=== PATIENT | male | born 1945 | race Caucasian/White ===

== ENCOUNTER 2018-09-25 09:23 | Day surgery (SDC) | payer OTHER ==
[2018-09-24 12:24] VITALS: BMI 24.7
[~2018-09-25 09:23] MED LIST: ACETAMINOPHEN 325 MG TABLET (FP) PO PRN; BSS (NA/CA/MG/K) BALANCED SALT SOLUTION OPHTH SOLN 15 ML BOTTLE OD ONE; POVIDONE-IODINE 5% OPHTHALMIC PREP 30 ML SOLUTION OD ONE; TETRACAINE 0.5% OPHTH SOLN 2 ML BOTTLE OD ONE
[2018-09-25 09:49] VITALS: TEMP 98.2
[2018-09-25] MEDS ORDERED: OFLOXACIN 0.3% OPHTHALMIC SOLUTION 5 ML BOTTLE ONE (10:01)
[2018-09-25] MEDS ORDERED: TROPICAMIDE 1% OPHTH SOLN 15 ML BOTTLE ONE (10:01)
[2018-09-25] MEDS ORDERED: CYCLOPENTOLATE HCL 1% OPHTH SOLN 2 ML BOTTLE ONE (10:01)
[2018-09-25] MEDS ORDERED: KETOROLAC TROMETHAMINE 0.5% EYE DROP 1 DROP DROPS ONE (10:01)
[2018-09-25] MEDS: KETOROLAC TROMETHAMINE 0.5% EYE DROP 1 DROP DROPS OP SCH ×2 (10:16→10:32)
[2018-09-25] MEDS: CYCLOPENTOLATE HCL 1% OPHTH SOLN 2 ML BOTTLE OP SCH ×2 (10:16→10:32)
[2018-09-25] MEDS: PHENYLEPHRINE 2.5% OPHTH SOLN 15 ML BOTTLE OP SCH ×2 (10:17→10:32)
[2018-09-25] MEDS: OFLOXACIN 0.3% OPHTHALMIC SOLUTION 5 ML BOTTLE OP SCH ×2 (10:17→10:32)
[2018-09-25] MEDS: TROPICAMIDE 1% OPHTH SOLN 15 ML BOTTLE OP SCH ×2 (10:17→10:33)
[2018-09-25] MEDS ORDERED: PROPOFOL 20 ML ONE (10:33)
[2018-09-25] MEDS ORDERED: BUPIVACAINE HCL/PF 0.75% 10 ML VIAL NR ONE (10:59)
[2018-09-25] MEDS ORDERED: LIDOCAINE HCL/PF 2% SDV 5ML VIAL INF ONE (10:59)
[2018-09-25] MEDS ORDERED: GLYCOPYRROLATE 0.2 MG/1 ML VIAL ONE (11:02)
[2018-09-25] MEDS ORDERED: POVIDONE-IODINE 5% OPHTHALMIC PREP 30 ML SOLUTION OD ONE (11:03)
[2018-09-25] MEDS ORDERED: BSS (NA/CA/MG/K) BALANCED SALT SOLUTION OPHTH SOLN 15 ML BOTTLE OD ONE (11:09)
[2018-09-25] MEDS ORDERED: CHONDROITIN SU A/HYALUR SOD 1 KIT IO ONE (11:09)
[2018-09-25] MEDS ORDERED: LIDOCAINE HCL 1% PRESERVATIVE FREE - 30ML VIAL IO ONE (11:09)
[2018-09-25] MEDS ORDERED: EPINEPHrine/PF 1 MG/1 ML (1:1,000) AMPULE SQ ONE (11:19)
[2018-09-25] MEDS ORDERED: TRYPAN BLUE 0.5 ML DISP.SYRIN IO ONE (11:19)
[2018-09-25 12:16] VITALS: BP 137/84; PULSE 62
--- NOTE | 2018-09-26 07:03 | OP ---
DATE OF OPERATION: 09/25/2018 SURGEON: Winston Botello M.D. PREOPERATIVE DIAGNOSIS: Cataract, right eye. POSTOPERATIVE DIAGNOSIS: Cataract, right eye. OPERATION: Phacoemulsification of right cataract with capsular staining with Trypan blue and posterior chamber intraocular lens implantation. The lens used was SN60WF 24.0 diopter power, serial No. [id number]. ANESTHESIA: Peribulbar/Modified Van Lint/MAC. COMPLICATIONS: None. PROCEDURE: The patient was brought to the operating room and correctly identified along with the operative site as well as correct intraocular lens vargas. He was then given a peribulbar block under sedation with 5 mL of a 1:1 mixture of 2% Lidocaine and 0.75% Bupivacaine. Two mL of the same mixture was given as a modified Van Lint block. The eye was then prepped and draped in the usual sterile fashion including 5% Betadine solution in the conjunctival sac and an eyelid drape. An eyelid speculum was then placed into the operative eye. The patients eye was immediately noted to be infraducted, and the eye was attempted to be repositioned using Colibri forceps. However, the patient continued to squeeze and infraduct the eye. Multiple attempts with Uzbek translation was made to try to relax the patient. A paracentesis port was created and intracameral Lidocaine was given. Given the patients lack of centration of the eye, making visualization of the anterior capsule difficult, the decision was made to use trypan blue. An air bubble was injected intracamerally and the capsule was strained with Trypan blue. The Trypan blue was irrigated and aspirated from the eye with 0.5 ccs of preservative free lidocaine 1%. Viscoelastic was injected to inflate the capsular bag. A temporal clear corneal wound was created. A continuous circular capsulorrhexis was performed while holding the eye to fixate it. The nucleus was then hydro-dissected with BSS and removed with phacoemulsification. The remaining cortical material was irrigated and aspirated from the eye. Viscoelastic was injected to inflate the capsular bag. The lens was injected into the capsular bag. The Viscoelastic was then irrigated and aspirated from the eye. All wounds were tested and found to be watertight. The intraocular lens was noted to be well centered and covered by the anterior capsular border. Topical Vancomycin was given as well as a drop of Betadine. The eye was patched and shielded. The patient was discharged from the operating room in a stable condition WINSTON BOTELLO M.D. [id number] MTDTiffany
== END 2018-09-25 12:20 | disposition home or self-care (01) ==
LOC: JASU-SURG 09:23
PROVIDERS: ATTEND Ophthalmology
PROC: 08RJ3JZ Replacement of Right Lens with Synthetic Substitute, Percutaneous Approach (ICD-10-PCS; principal; 2018-09-25 11:00)
DX: H26.9 Unspecified cataract (principal); H57.9 Unspecified disorder of eye and adnexa

== ENCOUNTER 2018-10-09 08:25 | Day surgery (SDC) | payer OTHER ==
[2018-10-08 14:33] VITALS: BMI 24.5
[~2018-10-09 08:25] MED LIST changes: -ACETAMINOPHEN 325 MG TABLET (FP) PO PRN; -BSS (NA/CA/MG/K) BALANCED SALT SOLUTION OPHTH SOLN 15 ML BOTTLE OD ONE; +BSS (NA/CA/MG/K) BALANCED SALT SOLUTION OPHTH SOLN 15 ML BOTTLE OS ONE; +CHONDROITIN SU A/HYALUR SOD 1 KIT IO ONE; +EPINEPHrine/PF 1 MG/1 ML (1:1,000) AMPULE SQ ONE; +LIDOCAINE HCL 1% PRESERVATIVE FREE - 30ML VIAL IO ONE; -POVIDONE-IODINE 5% OPHTHALMIC PREP 30 ML SOLUTION OD ONE; +POVIDONE-IODINE 5% OPHTHALMIC PREP 30 ML SOLUTION OS ONE; -TETRACAINE 0.5% OPHTH SOLN 2 ML BOTTLE OD ONE
[2018-10-09] MEDS ORDERED: OFLOXACIN 0.3% OPHTHALMIC SOLUTION 5 ML BOTTLE ONE (08:41)
[2018-10-09] MEDS ORDERED: CYCLOPENTOLATE HCL 1% OPHTH SOLN 2 ML BOTTLE ONE (08:41)
[2018-10-09] MEDS ORDERED: TROPICAMIDE 0.5% OPHTHALMIC SOLN 15 ML BOTTLE ONE (08:41)
[2018-10-09] MEDS ORDERED: KETOROLAC TROMETHAMINE 0.5% EYE DROP 1 DROP DROPS ONE (08:42)
[2018-10-09] MEDS ORDERED: OFLOXACIN 0.3% OPHTHALMIC SOLUTION 5 ML BOTTLE OS ONE ×3 (08:50→09:30)
[2018-10-09] MEDS ORDERED: PHENYLEPHRINE 2.5% OPHTH SOLN 15 ML BOTTLE OS ONE ×3 (08:50→09:30)
[2018-10-09] MEDS ORDERED: CYCLOPENTOLATE HCL 1% OPHTH SOLN 2 ML BOTTLE OS ONE ×3 (08:50→09:30)
[2018-10-09] MEDS ORDERED: KETOROLAC TROMETHAMINE 0.5% EYE DROP 1 DROP DROPS OS ONE ×3 (08:50→09:30)
[2018-10-09] MEDS ORDERED: TROPICAMIDE 0.5% OPHTHALMIC SOLN 15 ML BOTTLE OS ONE ×3 (08:50→09:30)
[2018-10-09] MEDS ORDERED: ACETAMINOPHEN 325 MG TABLET (FP) PO PRN (09:19)
[2018-10-09] MEDS ORDERED: PHENYLEPHRINE 2.5% OPHTH SOLN 15 ML BOTTLE OP SCH (09:30)
[2018-10-09] MEDS ORDERED: CYCLOPENTOLATE HCL 1% OPHTH SOLN 2 ML BOTTLE OP SCH (09:30)
[2018-10-09] MEDS ORDERED: TROPICAMIDE 1% OPHTH SOLN 15 ML BOTTLE OP SCH (09:30)
[2018-10-09] MEDS ORDERED: OFLOXACIN 0.3% OPHTHALMIC SOLUTION 5 ML BOTTLE OP SCH (09:30)
[2018-10-09] MEDS ORDERED: KETOROLAC TROMETHAMINE 0.5% EYE DROP 1 DROP DROPS OP SCH (09:30)
[2018-10-09] MEDS ORDERED: LIDOCAINE HCL/PF 1% SDV 5ML VIAL ONE (11:08)
[2018-10-09] MEDS ORDERED: PROPOFOL 20 ML ONE (11:10)
[2018-10-09] MEDS ORDERED: POVIDONE-IODINE 5% OPHTHALMIC PREP 30 ML SOLUTION OS ONE (11:35)
[2018-10-09] MEDS ORDERED: BSS (NA/CA/MG/K) BALANCED SALT SOLUTION OPHTH SOLN 15 ML BOTTLE OS ONE (11:44)
[2018-10-09] MEDS ORDERED: LIDOCAINE HCL 1% PRESERVATIVE FREE - 30ML VIAL IO ONE (11:44)
[2018-10-09] MEDS ORDERED: CHONDROITIN SU A/HYALUR SOD 1 KIT IO ONE (11:44)
[2018-10-09] MEDS ORDERED: EPINEPHrine/PF 1 MG/1 ML (1:1,000) AMPULE SQ ONE (11:49)
[2018-10-09] MEDS ORDERED: ONDANSETRON 4 MG/2 ML VIAL IVPUSH PRN (12:22)
[2018-10-09] MEDS ORDERED: SODIUM CHLORIDE 1,000 ML IV SCH (12:30)
--- NOTE | 2018-10-09 12:30 | OP ---
DATE OF OPERATION: 10/09/2018 SURGEON: Richard Conner M.D. PREOPERATIVE DIAGNOSIS: Cataract, left eye. POSTOPERATIVE DIAGNOSIS: Cataract, left eye. OPERATION: Phacoemulsification of left cataract with posterior chamber intraocular lens implantation. The lens used SN60WF, 23.5 diopter, serial No. [id number]. ANESTHESIA: LMA. COMPLICATIONS: None. : DESCRIPTION OF PROCEDURE: The patient was brought to the operating room and correctly identified along with the operative site as well as correct intraocular lens vargas. He was then placed under general anesthesia with laryngeal mask anesthesia. He was then prepped and draped in the usual sterile fashion including 5% Betadine solution in the conjunctival sac and an eyelid drape. An eyelid speculum was then placed into the left eye. A paracentesis port was created and intracameral lidocaine was given 1% preservative-free approximately 0.5 mL. Viscoelastic was injected to inflate the anterior chamber, and a temporal clear corneal wound was created. A continuous circular capsulorrhexis was made. The nucleus was then hydro-dissected with BSS and removed with phacoemulsification via the [id number] approach. The remaining cortical material was irrigated and aspirated from the eye. Viscoelastic was injected to inflate the capsular bag. The lens was injected into the capsular bag. Viscoelastic was then irrigated and aspirated from the eye. At the end of the procedure, the intraocular lens was noted to be well centered and covered by the anterior capsular border. All wounds were tested and found to be watertight. No suture was placed. Topical Vancomycin and Betadine given. The eye patched and shielded, the patient was aroused from LMA anesthesia without complication and discharged from the operating room. Micheal [id number] MTDTiffany
[2018-10-09 13:20] VITALS: TEMP 98
[2018-10-09] MEDS ORDERED: ACETAMINOPHEN 325 MG TABLET (FP) ONE (13:39)
[2018-10-09] MEDS ORDERED: ACETAMINOPHEN 325 MG TABLET (FP) PO ONE (13:44)
[2018-10-09 14:02] VITALS: BP 141/87; PULSE 65
== END 2018-10-09 14:10 | disposition home or self-care (01) ==
LOC: JASU-SURG 08:25
PROVIDERS: ATTEND Ophthalmology
PROC: 08RK3JZ Replacement of Left Lens with Synthetic Substitute, Percutaneous Approach (ICD-10-PCS; principal; 2018-10-09 11:00)
DX: H26.9 Unspecified cataract (principal)
CPT/HCPCS: 94760